=== PATIENT | male | born 1950 | race Caucasian/White ===

== ENCOUNTER 2018-03-02 10:18 | Day surgery (SDC) | payer MEDICARE, BC ==
[2018-02-28 14:01] VITALS: BMI 24.7
[~2018-03-02 10:18] MED LIST: LACTATED RINGERS 1,000 ML IV SCH
[2018-03-02 10:59] VITALS: TEMP 98
[2018-03-02] MEDS ORDERED: LIDOCAINE 1% 20 ML VIAL (10MG/ML) FOR IV START INTRADERMA ONE (11:00)
[2018-03-02] MEDS ORDERED: LACTATED RINGERS 1,000 ML IV ONE (11:00)
[2018-03-02] MEDS ORDERED: LIDOCAINE 1% INJ 10MG/ML (20 ML MDV) ONE (11:45)
[2018-03-02] MEDS ORDERED: PROPOFOL 10 MG/ML 20 ML VIAL IV ONE (11:45)
[2018-03-02 12:39] VITALS: BP 115/67; PULSE 57; RESP 16
--- NOTE | 2018-03-02 14:44 | P.PCN ---
Date of Procedure: 03/02/18 Procedure(s) Performed: Procedures: 1. Esophagogastroduodenoscopy and biopsy. 2. Total colonoscopy. Preoperative diagnosis: History of Major's esophagus and history of polyps. Postoperative diagnosis: 1. Long segment of Major's esophagus with distal esophageal ulcer in the Major's segment. 2. Esophagitis proximal to the talisha- GE junction. 3. Hiatal hernia. 4. Normal colonoscopy. Preparation: HalfLytely prep. Sedation: Was provided by anesthesia Brief clinical history: The patient is a 67-year-old male who is scheduled for this evaluation because of history of Major's esophagus and history of polyps. His last EGD was around 2 years ago and his last colonoscopy was around 5 years ago. The patient has stopped taking his PPI within the last 3 or 4 months and apparently he has been having issues with heartburn and atypical chest pains. He has no change in bowels or bleeding. Procedure: With the patient on his left lateral decubitus position and after informed consent and adequate sedation, I passed the Olympus-GIF 160 video upper endoscope through the cricopharyngeus down the esophagus. The talisha-GE junction was noted at around 25 cm from the incisors and the tubular esophagus continues for another 7-9 cm. There is a sliding hiatal hernia starting around 35 cm measuring around 3-4 cm or so. There were no strictures. At the junction of the Major's segment with the hiatal hernia there was an esophageal ulceration measuring around 1.5-2 cm in greatest dimension. I obtained multiple biopsies. The esophagus proximal to the talisha-GE junction showed several erosions and superficial ulcerations consistent with LA grade C esophagitis. The endoscope was then passed into the stomach which was insufflated with air and inspected in detail including the retroflex view in the cardia and finally the endoscope was passed through the pylorus into the duodenum. The stomach and duodenum did not show any obvious abnormalities. The endoscope was then withdrawn back into the esophagus and biopsies were obtained from the esophagus proximal to the talisha-GE junction. Perianal area did not show any fissures or fistulas. There were no masses felt on digital rectal examination. The Olympus CFQ 160L video colonoscope was then inserted in the rectum and the usual fashion and advanced to the cecum. The mucosa appeared healthy. No polyps or tumors were seen or any obvious diverticular disease or other pathology. I retroflexed endoscope in the rectum before the endoscope was withdrawn. Disposition: The patient tolerated the procedure well. Plan: The patient was reassured. Will await biopsy results. I had him restart his omeprazole any twice a day dosing and I'll see him in follow-up in the office in 4-6 weeks. I anticipate repeating his upper endoscopy in the next 2- 3 months to assess the healing of the ulcer in the Major's segment and to plan further surveillance of his Major's in the future. I would keep you updated on his progress.
== END 2018-03-02 13:05 | disposition home or self-care (01) ==
LOC: ORWHC2ENDO 10:18
DX: Z12.11 Encounter for screening for malignant neoplasm of colon (principal); K21.0 Gastro-esophageal reflux disease with esophagitis; K22.70 Barrett's esophagus without dysplasia; K44.9 Diaphragmatic hernia without obstruction or gangrene; Z86.010 Personal history of colon polyps; Z79.899 Other long term (current) drug therapy
CPT/HCPCS: 88305; 88312; 43239; J2001; J2704; G0105

== ENCOUNTER 2018-06-12 09:49 | Day surgery (SDC) | payer MEDICARE, BC ==
[2018-06-09 10:03] VITALS: BMI 25.4
[~2018-06-12 09:49] MED LIST changes: +LIDOCAINE 1% 20 ML VIAL (10MG/ML) FOR IV START INTRADERMA PRN
[2018-06-12 10:11] VITALS: RESP 16; TEMP 98.1
[2018-06-12] MEDS ORDERED: PROPOFOL 10 MG/ML 20 ML VIAL IV ONE (10:41)
[2018-06-12] MEDS ORDERED: LIDOCAINE 1% INJ 10MG/ML (20 ML MDV) ONE (10:41)
--- NOTE | 2018-06-12 11:11 | P.PCN ---
Date of Procedure: 06/12/18 Procedure(s) Performed: Procedure: Esophagogastroduodenoscopy and biopsy. Preoperative diagnosis: History of Major's esophagus. Postoperative diagnosis: Long segment of Major's, multiple biopsies obtained at 2 different levels. Preparation and sedation: Were provided by anesthesia. Brief clinical history: The patient is a 67-year-old male with history of Major's esophagus that has been monitored closely since around 2003. His last evaluation was in February 2018. At that time, he was noticed to have esophagitis proximal to the talisha-GE junction and there was an ulcer in the Major's segment close to the junction with the stomach. He continues to be on PPI. No other alarm symptoms. This evaluation is scheduled to assess the healing of the esophagitis and the esophageal ulcer and to obtain biopsies for dysplasia screening for esophageal cancer.. Procedure: With the patient on his left lateral decubitus position and after informed consent and adequate sedation, I passed the Olympus-GIF 160 video upper endoscope through the cricopharyngeus down the esophagus. The talisha-GE junction was noted at around 25 cm from the incisors and the tubular esophagus continues for another 9-10 cm. There is a sliding hiatal hernia starting around 35 cm measuring around 2 cm or so. There were no strictures. The previously described esophagitis and ulceration appears to have totally healed. The esophagus proximal to the talisha-GE junction appeared normal. The endoscope was then passed into the stomach which was insufflated with air and inspected in detail including the retroflex view in the cardia and finally the endoscope was passed through the pylorus into the duodenum. The stomach and duodenum did not show any obvious abnormalities. The endoscope was then withdrawn back into the esophagus and biopsies were obtained at 25-26 and 31 cm from the incisors from 4 different quadrants, then the endoscope was withdrawn. Plan: The patient tolerated the procedure well. Will await biopsy results and I anticipate repeating his exam in 2-3 years. He will follow up with you as planned.
[2018-06-12 11:28] VITALS: BP 124/79; PULSE 56
== END 2018-06-12 11:50 | disposition home or self-care (01) ==
LOC: ORWHC2ENDO 09:49
DX: K22.70 Barrett's esophagus without dysplasia (principal); K44.9 Diaphragmatic hernia without obstruction or gangrene; K21.9 Gastro-esophageal reflux disease without esophagitis; Z79.51 Long term (current) use of inhaled steroids; Z79.899 Other long term (current) drug therapy
CPT/HCPCS: 88305; 43239; J2001; J2704

== ENCOUNTER 2019-07-20 09:57 | Day surgery (SDC) | payer MEDICARE, BC ==
[2019-07-18 11:40] VITALS: BMI 25.7
[2019-07-20 10:16] VITALS: RESP 16; TEMP 97.9
[2019-07-20] MEDS ORDERED: LIDOCAINE 1% INJ 10MG/ML (20 ML MDV) ONE (11:12)
[2019-07-20] MEDS ORDERED: PROPOFOL 10 MG/ML 20 ML VIAL IV ONE (11:12)
--- NOTE | 2019-07-20 11:31 | P.PCN ---
Date of Procedure: 07/20/19 Procedure(s) Performed: BRIEF HISTORY: Patient is a 59-year-old, pleasant, white male, scheduled for an upper endoscopy as a part of evaluation of long-standing history of GERD and Major's esophagus. He is presently on Prilosec 20 mg twice daily and doing well. PROCEDURE PERFORMED: Esophagogastroduodenoscopy with biopsy. PREOPERATIVE DIAGNOSIS: GERD/Major's esophagus. IV sedation per anesthesia. PROCEDURE: After informed consent was obtained, the patient was brought into the endoscopy unit. IV sedation was administered by Anesthesia under continuous monitoring. Initially the Olympus GIF-140 video endoscope was inserted into the mouth. Esophagus intubated without any difficulty. It was gradually advanced into the stomach and duodenum and carefully examined. The bulb and the second part of the duodenum appeared normal. The scope at this time was withdrawn to the stomach, adequately insufflated with air, and upon careful examination, mucosa of the antrum, body, cardia and the fundus appeared normal. The scope was then withdrawn into the esophagus. The GE junction was located at 34 cm from the incisors. There was a 56 cm GE junction polyp that was also biopsied. There was long segment of Major's esophagus extended from 24-34 mm in the incisors with no ulcerations or nodularity seen. Multiple biopsies were done at every 2 cm into well to rule out dysplasia. The rest of the esophagus appeared normal. There were no erosions or ulcerations seen and the patient tolerated the procedure well. IMPRESSION: 1. Long segment Major's esophagus extending from 24-34 cm from the incisors status post multiple biopsies to rule out dysplasia .2. Moderate size hiatal hernia. 3. Small GE junction polyp status post biopsy RECOMMENDATIONS: The findings of this examination were discussed with the patient as well as his family. He was advised to follow with the biopsy results . As his twice daily and follow antireflux measures. If the biopsy does not show any evidence of dysplasia, he can have a repeat upper endoscopy in 2 years.
[2019-07-20 11:37] VITALS: PULSE 61
[2019-07-20 11:55] VITALS: BP 134/85
== END 2019-07-20 12:18 | disposition home or self-care (01) ==
LOC: ORWHC2ENDO 09:57
PROVIDERS: ATTEND Internal Medicine Gastroenterology
DX: K22.70 Barrett's esophagus without dysplasia (principal); K44.9 Diaphragmatic hernia without obstruction or gangrene; K21.9 Gastro-esophageal reflux disease without esophagitis; Z79.899 Other long term (current) drug therapy
CPT/HCPCS: 88305; 43239; J2001; J2704

== ENCOUNTER → 2019-09-15 | Outpatient (CLI) | payer MEDICARE, BC ==
--- NOTE | 2019-09-19 10:12 | PE ---
Nuclear medicine PET/CT HISTORY: Esophageal carcinoma, initial Patient received 11.8 mCi F-18 FDG intravenously in delayed scanning was performed from skull base to the mid thighs. Localization and attenuation correction CT scan was performed. No comparisons Neck and chest: Uptake along the palatine tonsil is felt likely to be inflammatory, there are calcifi cations suggesting chronic change. There is no axillary, mediastinal, supraclavicular, cervical, or h ilar adenopathy. There is a sizable hiatal hernia with partial intrathoracic stomach. No suspicious h ypermetabolic uptake. There is an azygos lobe. No evident lung mass. No pleural or pericardial effusi on. There are coronary artery calcifications present. ABDOMEN: The liver shows no mass. No retroperitoneal adenopathy. No suspicious uptake noted. Prostate shows associated calcifications. Osseous structures show no suspicious abnormality. IMPRESSION: No suspicious hypermetabolic uptake.
== END | disposition home or self-care (01) ==
LOC: RADPETMAIN 12:27
PROVIDERS: ATTEND Internal Medicine Gastroenterology
DX: C15.8 Malignant neoplasm of overlapping sites of esophagus (principal)
CPT/HCPCS: 78815; A9552

== ENCOUNTER 2021-04-24 09:37 | Observation (INO) | payer MEDICARE, BC ==
[2021-04-24] MEDS ORDERED: ASPIRIN 81 MG PO STA (10:06)
[2021-04-24] MEDS ORDERED: NITROGLYCERIN SL TABS 0.4 MG TAB SUBLINGUAL STA (10:06)
--- NOTE | 2021-04-24 10:18 | ED ---
Chest Pain HPI - General Chief Complaint: Chest Pain Stated Complaint: Chest Pain Time Seen by Provider: 04/24/21 09:51 Source: patient, RN notes reviewed Mode of arrival: wheelchair Limitations: no limitations - History of Present Illness Initial Comments: This is a 70-year-old male with no prior history of heart disease who states she's been having intermittent episodes of chest pain with shortness of breath or past 1-2 weeks at worse over last 2 days. Pain was dull anterior chest left- sided to 3/10 severity at its worst currently about once to 2/10 he states he also gets some sharp pain with deep breathing along with this she's had no fevers chills nausea vomiting sweats cough or other symptoms at this time. MD Complaint: chest pain - Related Data Home Medications Medication Instructions Recorded Confirmed Omeprazole [PriLOSEC] 20 mg PO BID 12/24/15 04/24/21 Allergies Allergy/AdvReac Type Severity Reaction Status Date / Time No Known Allergies Allergy Verified 04/24/21 10:37 Review of Systems ROS Statement: Those systems with pertinent positive or pertinent negative responses have been documented in the HPI. ROS Other: All systems not noted in ROS Statement are negative. EKG Findings - EKG Results: EKG: interpreted by ERMD, sinus rhythm (Sinus rhythm rate 60. Interval 156 QRS 94 QT since QTC 390/390 minimal voltage criteria for LVH no acute ST-T wave changes seen at this time) Past Medical History Past Medical History: GERD/Reflux Additional Past Medical History / Comment(s): Major's esophagus, bronchitis, SEASONAL ALLERGIES History of Any Multi-Drug Resistant Organisms: None Reported Additional Past Surgical History / Comment(s): jaw surgery,EGD Past Anesthesia/Blood Transfusion Reactions: No Reported Reaction Past Psychological History: No Psychological Hx Reported Smoking Status: Never smoker Past Alcohol Use History: None Reported Past Drug Use History: None Reported - Past Family History Mother Family Medical History: Deep Vein Thrombosis (DVT) General Exam - General Exam Comments Initial Comments: This is a well-developed well-nourished awake alert oriented 3 male Limitations: no limitations General appearance: alert, in no apparent distress Head exam: Present: atraumatic, normocephalic, normal inspection Eye exam: Present: normal appearance, PERRL, EOMI. Absent: scleral icterus, conjunctival injection, periorbital swelling ENT exam: Present: normal exam, mucous membranes moist Neck exam: Present: normal inspection, full ROM, other (No stridor JVD or bruits). Absent: tenderness, meningismus, lymphadenopathy Respiratory exam: Present: normal lung sounds bilaterally. Absent: respiratory distress, wheezes, rales, rhonchi, stridor Cardiovascular Exam: Present: regular rate, normal rhythm, normal heart sounds. Absent: systolic murmur, diastolic murmur, rubs, gallop, clicks GI/Abdominal exam: Present: soft, normal bowel sounds. Absent: distended, tenderness, guarding, rebound, rigid Extremities exam: Present: normal inspection, full ROM, normal capillary refill. Absent: tenderness, pedal edema, joint swelling, calf tenderness Back exam: Present: normal inspection Neurological exam: Present: alert, oriented X3, CN II-XII intact Psychiatric exam: Present: normal affect, normal mood Skin exam: Present: warm, dry, intact, normal color. Absent: rash Course Vital Signs 04/24/21 04/24/21 04/24/21 09:44 10:20 10:30 Temperature 98.0 F Pulse Rate 69 60 67 Respiratory 18 18 18 Rate Blood Pressure 157/93 149/84 132/86 O2 Sat by Pulse 99 96 94 L Oximetry 04/24/21 04/24/21 11:19 11:41 Temperature Pulse Rate 60 63 Respiratory 18 16 Rate Blood Pressure 127/86 133/82 O2 Sat by Pulse 97 95 Oximetry Chest Pain MDM - MDM Imaging reviewed no evidence of acute findings no PE. I did have a long discussion with patient regarding the findings the presentation is somewhat atypical of her typical coronary artery disease. Patient will be admitted however for further evaluation I did discuss case with Dr. Rojas. Cardiology will be consulted. Disposition Clinical Impression: Atypical chest pain, Unstable angina pectoris Disposition: ADMITTED IP TO THIS [facility] Condition: Fair Referrals: Neda Gomez MD [Primary Care Provider] - 1-2 days
[2021-04-24 10:20] LABS: Basophils % (A) 0 %; Eosinophils # (A) 0.2 k/uL (0-0.7); Eosinophils % (A) 3 %; HCT 43.4 % (39.0-53.0); HGB 14.9 gm/dL (13.0-17.5); Lymphocytes # (A) 2.3 k/uL (1.0-4.8); Lymphocytes % (A) 27 %; MCH 31.8 pg (25.0-35.0); MCHC 34.4 g/dL (31.0-37.0); MCV 92.4 fL (80.0-100.0); Mean Platelet Volume 6.7; Monocytes # (A) 0.6 k/uL (0-1.0); Monocytes % (A) 7 %; Neutrophils # (A) 5.2 k/uL (1.3-7.7); Neutrophils % (A) 61 %; Platelet Count 221 k/uL (150-450); RBC 4.69 m/uL (4.30-5.90); RDW 12.7 % (11.5-15.5); WBC 8.4 k/uL (3.8-10.6)
[2021-04-24 10:31] LABS: ALT 19 U/L (4-49); AST 31 U/L (17-59); African American GFR (CKD) >90 (>60 ml/min/1.73 sqM); Albumin 4.1 g/dL (3.5-5.0); Alkaline Phosphatase 80 U/L (38-126); Anion Gap 7 mmol/L; Blood Urea Nitrogen 17 mg/dL (9-20); Calcium 9.2 mg/dL (8.4-10.2); Carbon Dioxide 25 mmol/L (22-30); Chloride 107 mmol/L (98-107); Creatine Kinase 224 U/L (55-170); Glucose 120 mg/dL (74-99); Lipase 248 U/L (23-300); Magnesium 1.9 mg/dL (1.6-2.3); Non-African American GFR(CKD) 87 (>60 ml/min/1.73 sqM); Potassium 4.2 mmol/L (3.5-5.1); Sodium 139 mmol/L (137-145); Total Bilirubin 0.5 mg/dL (0.2-1.3); Total Protein 7.1 g/dL (6.3-8.2)
--- NOTE | 2021-04-24 10:36 | XR ---
EXAMINATION TYPE: XR chest 2V DATE OF EXAM: 04/24/2021 COMPARISON: NONE HISTORY: Shortness of breath TECHNIQUE: Frontal and lateral views of the chest are obtained. FINDINGS: Scattered senescent parenchymal changes noted. Hyperinflation compatible with COPD. Mild increased density right medial lung base may reflect developing infiltrate. Correlate clinically . Heart size is stable. Mediastinal structures are stable and grossly unremarkable. No evidence for hilar prominence. Degenerative changes dorsal spine. IMPRESSION: 1. Mild increased density right medial lung base may reflect developing infiltrate. Correlate clinica lly.
[2021-04-24 10:40] LABS: INR 0.9 (<1.2); Partial Thromboplastin Time 23.1 sec (22.0-30.0); Prothrombin Time 9.6 sec (9.0-12.0)
[2021-04-24 10:47] LABS: D-Dimer 0.69 mg/L FEU (<0.60)
--- NOTE | 2021-04-24 12:15 | CT ---
EXAMINATION TYPE: CT angio chest DATE OF EXAM: 04/24/2021 COMPARISON: None HISTORY: SOB suspected PE CT DLP: 390.3 mGycm CONTRAST: CT chest with contrast and 3D reconstruction with MIP imaging is performed with IV Contrast, patient injected with 100ml mL of Isovue 370. Contrast-enhanced CT of the chest was performed through the course of the pulmonary arteries with bertram g and mediastinal window settings submitted. 3D reconstruction with MIP imaging was also performed. PULMONARY ARTERIES: The pulmonary arteries and their major tributaries are patent. I do not see john dence for sizable filling defect to suggest pulmonary embolic process. LUNGS: The lungs are clear and free of infiltrate. No evidence for atelectasis. No pulmonary nodule or mass is detected. No pleural effusion. MEDIASTINUM: Moderate fixed hiatal hernia noted. Thoracic aorta is of normal caliber,however, evalua tion is limited given timing of the contrast bolus. If there is concern for thoracic aortic patholog y consider LOVELY. Correlate clinically . The heart is not enlarged. No evidence for mediastinal mass. No mediastinal lymph nodes greater than 1cm. HILAR STRUCTURES: No evidence for mass. No hilar lymph nodes greater than 1 cm. UPPER ABDOMEN: No significant abnormality is seen. IMPRESSION: 1. No evidence for Pulmonary embolism at this time.
[2021-04-24] MEDS ORDERED: NITROGLYCERIN SL TABS 0.4 MG TAB SUBLINGUAL PRN (13:47)
[2021-04-24] MEDS ORDERED: HEPARIN SODIUM 1,000 UN/ML (10ML VL) IV ONE (13:47)
[2021-04-24] MEDS ORDERED: SODIUM CHLORIDE 0.9% 1,000 ML IV SCH (14:00)
[2021-04-24] MEDS ORDERED: HEPARIN SOD,PORK IN 0.45% NACL 25,000 UNIT in 0.45% NACL 1 250ML.BAG IV SCH (14:00)
[2021-04-25] MEDS ORDERED: HEPARIN SODIUM 1,000 UN/ML (10ML VL) IV PRN (00:15)
[2021-04-25] MEDS ORDERED: PANTOPRAZOLE 40 MG TABLET PO SCH (07:30)
[2021-04-25 08:25] VITALS: BP 132/84; PULSE 59; RESP 17; TEMP 98
[2021-04-25] MEDS ORDERED: ASPIRIN 325 MG TAB PO SCH (09:00)
--- NOTE | 2021-04-25 10:00 | ECHOF ---
Referral Reason:Chest pain MEASUREMENTS -------- HEIGHT: 165.1 cm WEIGHT: 80.7 kg BP: IVSd: 1.0 cm (0.6 - 1.1) LVIDd: 3.8 cm (3.9 - 5.3) LVPWd: 1.1 cm (0.6 - 1.1) EDV(Teich): 63 ml IVSs: 1.2 cm LVIDs: 3.0 cm LVPWs: 1.0 cm %IVS Thck: 29 % ESV(Teich): 34 ml EF(Teich): 46 % %FS: 23 % SV(Teich): 29 ml LALs A4C: 4.1 cm LAAs A4C: 13.1 cm LAESV A-L A4C: 35 ml LAESV MOD A4C: 33 ml LALs A2C: 5.3 cm LAAs A2C: 19.4 cm LAESV A-L A2C: 61 ml LAESV MOD A2C: 58 ml LAESV(A-L): 52 ml LAESV Index (A-L): 27.57 ml/m Ao Diam: 2.8 cm (2.0 - 3.7) AV Cusp: 1.7 cm (1.5 - 2.6) EPSS: 0.3 cm MV E Kian: 0.87 m/s MV DecT: 198 ms MV Dec [place]: 4.4 m/s MV A Kian: 0.84 m/s MV E/A Ratio: 1.04 MV PHT: 58 ms TR Vmax: 2.14 m/s TR maxP.28 mmHg RAP: 5.00 mmHg RVSP: 23.28 mmHg MV EF SLOPE: 107.71 mm/s (70 - 150) MV EXCURSION: 21.52 mm (> 18.000) FINDINGS -------- Sinus rhythm. This was a technically good study. LV size, wall thickness and systolic function are normal, with an EF greater than 55%. The left yahaira tricular size is normal. The right ventricle is normal in size. Normal LA size by volume 22+/-6 ml/m2. The right atrial size is normal. The aortic valve is trileaflet, and appears structurally normal. No aortic stenosis or regurgitation. Mild mitral regurgitation is present. Mild tricuspid regurgitation present. Right ventricular systolic pressure is normal at < 35 mmHg. There is no pulmonic regurgitation present. The aortic root size is normal. There is no pericardial effusion. CONCLUSIONS -------- 1. LV size, wall thickness and systolic function are normal, with an EF greater than 55%. 2. The left ventricular size is normal. 3. The right ventricle is normal in size. 4. Normal LA size by volume 22+/-6 ml/m2. 5. The right atrial size is normal. 6. The aortic valve is trileaflet, and appears structurally normal. No aortic stenosis or regurgitati on. 7. Mild mitral regurgitation is present. 8. Mild tricuspid regurgitation present. 9. The aortic root size is normal. 10. There is no pericardial effusion. SAW FILER: Anya Cole RDCS
[2021-04-25 10:11] LABS: Chol/HDL Ratio 3.92
--- NOTE | 2021-04-25 12:48 | P.HPIM ---
History of Present Illness H&P Date: 04/25/21 Chief Complaint: Chest pain Doug Belle, is a 70-year-old male who presented to [facility] emergency room with a chief complaint of chest pain, patient describes a dull pain in the left side of his chest that started about 1-1/2 months ago on and off but has been worse in the last 2 days. He was evaluated in the emergency room vital examination on presentation revealed a temperature of 98 pulse 69 respiration 18 blood pressure 157/93 pulse ox 99% on room air. Laboratory data in the emergency room revealed a white blood count of 8.4 hemoglobin 14.9 p latelet count 221 d-dimer was slightly elevated at 0.69 sodium 139 potassium 4.2 chloride 107 CO2 25 BUN 17 creatinine 0.87 glucose level was 120 cholesterol level 200 triglyceride level 100 troponin level was less than 0.012 COVID-19 PCR testing was negative. Chest x-ray done in the emergency room revealed mild increased density in the right medial lung base that may reflect developing infiltrate. CT angiogram of the chest was done in the emergency room and revealed no evidence for pulmonary embolism, the lungs were clear of any infiltrate on computed tomography scan. Patient was admitted to telemetry floor cardiology consultation was requested. Past Medical History Past Medical History: GERD/Reflux Additional Past Medical History / Comment(s): Major's esophagus, bronchitis, SEASONAL ALLERGIES History of Any Multi-Drug Resistant Organisms: None Reported Additional Past Surgical History / Comment(s): jaw surgery,EGD Past Anesthesia/Blood Transfusion Reactions: No Reported Reaction Past Psychological History: No Psychological Hx Reported Smoking Status: Never smoker Past Alcohol Use History: None Reported Past Drug Use History: None Reported - Past Family History Mother Family Medical History: Deep Vein Thrombosis (DVT), Myocardial Infarction ([place]) Father Additional Family Medical History / Comment(s): TIAs Medications and Allergies Home Medications Medication Instructions Recorded Confirmed Type Omeprazole [PriLOSEC] 20 mg PO BID 12/24/15 04/24/21 History Aspirin 81 mg PO DAILY chew 04/25/21 Rx Metoprolol Tartrate [Lopressor] 12.5 mg PO BID tab 04/25/21 Rx Nitroglycerin Sl Tabs [Nitrostat] 0.4 mg SUBLINGUAL Q5M PRN tab 04/25/21 Rx Allergies Allergy/AdvReac Type Severity Reaction Status Date / Time No Known Allergies Allergy Verified 04/24/21 10:37 Physical Exam Vitals: Vital Signs Temp Pulse Pulse Resp BP BP Pulse Ox 04/25/21 07:00 98.0 F 59 L 17 132/84 95 04/25/21 02:00 97.8 F 61 20 155/94 98 04/24/21 19:51 97.7 F 63 18 145/86 97 04/24/21 15:56 98.2 F 81 16 132/67 97 04/24/21 14:00 57 L 19 149/82 97 04/24/21 13:00 52 L 19 139/86 97 04/24/21 12:00 61 18 134/82 97 Intake and Output 04/24/21 04/25/21 04/25/21 22:59 06:59 14:59 Intake Total 118 99.792 Balance 118 99.792 Intake: Intake, IV Titration 99.792 Amount Heparin Sod,Pork in 0.45% 99.792 NaCl 25,000 unit In 0.45 % NaCl 1 250ml.bag @ 12 UNITS/KG/HR 9.58 mls/hr IV .Q24H [facility] Rx#: [id number] Oral 118 Other: Voiding Method Toilet # Voids 2 3 Weight 79.832 kg In general patient is alert and oriented ?-3 in no distress HEENT head normocephalic and atraumatic Neck is supple no JVD no goiter no lymphadenopathy no carotid bruit Chest examination is clear to auscultation no crackles no wheezing Cardiac exam reveals regular heart sounds S1 and S2 no gallops no murmurs Abdomen is soft nontender no organomegaly with normal bowel sounds Extremity exam reveals no edema no cyanosis or clubbing Neurological examination reveals no gross focal deficits Results CBC & Chem 7: 04/24/21 10:08 04/24/21 10:08 Labs: Abnormal Lab Results - Last 24 Hours (Table) 04/24/21 04/25/21 Range/Units 19:36 06:05 APTT 38.1 H 49.6 H (22.0-30.0) sec Thrombosis Risk Factor Assmnt - Choose All That Apply Each Factor Represents 1 point: Obesity (BMI >25) Each Risk Factor Represents 2 Points: Age 61-74 years Thrombosis Risk Factor Assessment Total Risk Factor Score: 3 Thrombosis Risk Factor Assessment Level: Moderate Risk Assessment and Plan Plan: Episodes of chest pain History of esophageal cancer with previous history of Major esophagus, patient had surgery and is followed at [facility] Elevated d-dimer, pulmonary embolism ruled out Previous history of anemia At this time patient is admitted to telemetry floor Serial EKGs and cardiac enzymes are ordered Patient was started on IV heparin Home medications reviewed and reordered Cardiology consultation requested Will follow closely
--- NOTE | 2021-04-25 12:51 | P.DS ---
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 He was evaluated in the emergency room vital examination on presentation revealed a temperature of 98 pulse 69 respiration 18 blood pressure 157/93 pulse ox 99% on room air. Laboratory data in the emergency room revealed a white blood count of 8.4 hemoglobin 14.9 platelet count 221 d-dimer was slightly elevated at 0.69 sodium 139 potassium 4.2 chloride 107 CO2 25 BUN 17 creatinine 0.87 glucose level was 120 cholesterol level 200 triglyceride level 100 troponin level was less than 0.012 COVID-19 PCR testing was negative. Chest x-ray done in the emergency room revealed mild increased density in the right medial lung base that may reflect developing infiltrate. CT angiogram of the chest was done in the emergency room and revealed no evidence for pulmonary embolism, the lungs were clear of any infiltrate on computed tomography scan. Patient was admitted to telemetry floor cardiology consultation was requested. On 04/25/2021 Patient was seen and examined on the medical floor, he is alert and oriented x 3 in no distress, he denies any complaints there is no fever or chills no headache or dizziness no chest pain no shortness of breath no palpitation no cough no nausea or vomiting no abdominal pain no diarrhea no blood in the stools no burning with urination no frequency or urgency and no hematuria, there is no weakness or numbness in any of the extremities no change in vision speech or gait.. Patient is stable at this time serial troponin are negative, he was evaluated by cardiology and was cleared for discharge. He will be followed by cardiology in 1-2 weeks for outpatient stress test. Recommendation to add a baby aspirin and metoprolol to patient's regimen, prescriptions were given patient was discharged home on 04/25/2021 he will be followed by his primary care physician Dr. Gomez, he will also be followed by cardiology in 1-2. Patient Condition at Discharge: Fair Plan - Discharge Summary New Discharge Prescriptions: New Nitroglycerin Sl Tabs [Nitrostat] 0.4 mg SUBLINGUAL Q5M PRN tab PRN Reason: Chest Pain Aspirin 81 mg PO DAILY chew Metoprolol Tartrate [Lopressor] 12.5 mg PO BID tab Continue Omeprazole [PriLOSEC] 20 mg PO BID Discharge Medication List Omeprazole [PriLOSEC] 20 mg PO BID 12/24/15 [History] Aspirin 81 mg PO DAILY chew 04/25/21 [Rx] Metoprolol Tartrate [Lopressor] 12.5 mg PO BID tab 04/25/21 [Rx] Nitroglycerin Sl Tabs [Nitrostat] 0.4 mg SUBLINGUAL Q5M PRN tab 04/25/21 [Rx] Follow up Appointment(s)/Referral(s): Sun Clements MD [STAFF PHYSICIAN] - 1 Week (please call Tuesday am to set up an appointment for out pt stress test ) Neda Gomez MD [Primary Care Provider] - 1-2 days Patient Instructions/Handouts: Chest Pain (GEN) Care Plan Goals (MU): no work for next week, no strenuous activity for next week, no push ups, may walk 2 times a day for 30 minutes return to hospital if symptoms worsen
--- NOTE | 2021-04-25 13:35 | CONS ---
CONSULTATION HISTORY OF PRESENT ILLNESS: Doug Belle is a 70-year-old gentleman who is a fairly active person. He carries a diagnosis of Major's esophagus and has had some surgical procedures and ablation for this at [facility]. 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 He did a little bit of excessive pushups last few days and has experienced some left anterior chest discomfort and he is here with this problem. He is comfortable at the time of my evaluation, has no chest discomfort. The pain in the anterior chest has also improved. There is actually some tenderness in the anterior costochondral area of the 3rd or 4th ribs. It seems to get worse when he takes a deep breath. He thinks he may have pulled a muscle or hurt himself when he was doing excessive pushups. PAST MEDICAL HISTORY: Remarkable for gastroesophageal reflux disease and Major's esophagus for which he has had some ablation performed. He has had some surgery on his jaw, details unclear. He does not have hypertension, diabetes, or any other major medical problems. MEDICATIONS: Include omeprazole 20 mg b.i.d. ALLERGIES: None. PHYSICAL EXAMINATION: On examination, blood pressure is 130/70, pulse rate is 70 per minute. HEENT unremarkable. Fundus was not examined by me. Neck is supple. No JVD. I do not hear a carotid bruit. There is no thyromegaly. Heart exam reveals S1, S2 heard normally without a rub murmur or gallop. LUNGS are clear. Abdomen is soft, nontender. Lower extremities reveal normal pulses. No edema. Central nervous system is normal. EKG revealed sinus mechanism, no acute changes. LAB DATA: Revealed unremarkable troponins. LDL cholesterol is slightly is elevated at 129. Three sets of troponins are unremarkable. D-dimer is slightly elevated and patient had a CT angio which was negative for pulmonary embolism or for any aortic pathology. Echo revealed normal LV systolic function. IMPRESSION: 1. Atypical chest pain. 2. History of gastroesophageal reflux disease. Major's esophagus. RECOMMENDATIONS: I am recommending that the patient can be discharged today and further workup in terms of a stress test can be performed as an outpatient. No further workup is necessary at this time. Echo revealed preserved systolic function. I will initiate the patient on aspirin 81 mg daily and metoprolol 12.5 mg daily. I will see him in the office following a stress test in the next 2 weeks. I discussed my thoughts in detail with the patient. Thank you very much for the consult. ARIES / CONSUELO: [id number] /
[2021-04-25] MEDS ORDERED: METOPROLOL TARTRATE 12.5 MG TAB PO SCH (21:00)
[2021-04-26] MEDS ORDERED: ASPIRIN 81 MG PO SCH (09:00)
== END 2021-04-25 13:10 | disposition home or self-care (01) ==
LOC: EC 09:37 → 6NMEDSUR 13:44
PROVIDERS: ADMIT Internal Medicine; ATTEND Internal Medicine
DX: R07.89 Other chest pain (principal); R79.89 Other specified abnormal findings of blood chemistry; K21.9 Gastro-esophageal reflux disease without esophagitis; K22.70 Barrett's esophagus without dysplasia; J30.2 Other seasonal allergic rhinitis; E66.9 Obesity, unspecified; Z68.26 Body mass index [BMI] 26.0-26.9, adult; Z20.822 Contact with and (suspected) exposure to COVID-19; Z87.09 Personal history of other diseases of the respiratory system; Z79.899 Other long term (current) drug therapy; Z85.01 Personal history of malignant neoplasm of esophagus; Z86.2 Personal history of diseases of the blood and blood-forming organs and certain disorders involving the immune mechanism; Z82.0 Family history of epilepsy and other diseases of the nervous system; Z82.49 Family history of ischemic heart disease and other diseases of the circulatory system
CPT/HCPCS: 96366 ×3; 93005 ×2; 96365; 99285; 36415; 93306; 85379; 83880; 80061; 80053; 82550; 83690; 83735; 84484; 85025; 85610; 85730 ×2; 87635; 71046; 71275; G0378 ×2; J1644 ×3; Q9967

== ENCOUNTER 2024-01-06 11:53 | Day surgery (SDC) | payer MEDICARE ==
[2024-01-06] MEDS: LACTATED RINGERS 1,000 ML IV SCH (12:51)
[2024-01-06 13:07] VITALS: TEMP 97.3
[2024-01-06] MEDS ORDERED: LIDOCAINE 1% INJ 10MG/ML (20 ML MDV) ONE (14:00)
[2024-01-06] MEDS ORDERED: PROPOFOL 10 MG/ML 20 ML VIAL IV ONE (14:00)
[2024-01-06] MEDS: LACTATED RINGERS 1,000 ML IV ONE (14:19)
--- NOTE | 2024-01-06 14:19 | P.PCN ---
Date of Procedure: 01/06/24 Procedure(s) Performed: BRIEF HISTORY: Patient is a 73-year-old, pleasant, white male scheduled for an upper endoscopy as a part of surveillance of prior history of Major's esophagus and high-grade dysplasia diagnosed in June 2019 following which he underwent EGD with endoscopic mucosal resection and radial frequency ablation of the Major's esophagus. Last EGD in November 2072 at [facility] revealed small island of Major's mucosa proximal to the GE junction. He scheduled for a repeat surveillance upper endoscopy in 1 year.. Remains on Prilosec 20 mg daily PROCEDURE PERFORMED: Esophagogastroduodenoscopy biopsy. PREOPERATIVE DIAGNOSIS: History of Major's esophagus with high-grade dysplasia diagnosed in January 2019, status post EGD with EMR and radiofrequency ablation at [facility] in 2018.. IV sedation per anesthesia. PROCEDURE: After informed consent was obtained, the patient was brought into the endoscopy unit. IV sedation was administered by Anesthesia under continuous monitoring. Initially the Olympus GIF-140 video endoscope was inserted into the mouth. Esophagus intubated without any difficulty. It was gradually advanced into the stomach and duodenum and carefully examined. The bulb and the second part of the duodenum appeared normal. The scope at this time was withdrawn to the stomach, adequately insufflated with air, and upon careful examination, mucosa of the antrum, body, cardia and the fundus appeared normal. Small gastric polyps identified which were biopsied. The scope was then withdrawn into the esophagus. The size hiatal hernia noted. The GE junction was located at 32 cm from the incisors. A small island of Major's appearing mucosa just proximal to the GE junction measuring 3 mm in size that was biopsied. Random biopsies were done from the distal esophagus. The rest of the esophagus appeared normal. There were no erosions or ulcerations seen and the patient tolerated the procedure well. IMPRESSION: 1. 3 mm island of Major's appearing mucosa just proximal to the GE junction at 31 cm from the incisors status post biopsy. 2. Moderate size hiatal hernia 3. Small gastric polyps. RECOMMENDATIONS: The findings of this examination were discussed with the patient as his family. He was advised to follow with the biopsy result. Continue Prilosec 20 mg daily and follow antrum reflux measures. Recommend repeat upper endoscopy in 1 year..
[2024-01-06 14:37] VITALS: BP 132/83; PULSE 63; RESP 16
== END 2024-01-06 14:51 | disposition home or self-care (01) ==
LOC: ORWHC2ENDO 11:53
PROVIDERS: ATTEND Internal Medicine Gastroenterology
DX: K22.711 Barrett's esophagus with high grade dysplasia (principal); K31.7 Polyp of stomach and duodenum; K44.9 Diaphragmatic hernia without obstruction or gangrene; Z98.890 Other specified postprocedural states; Z79.899 Other long term (current) drug therapy
CPT/HCPCS: 88305; 43239; J2001; J2704

== ENCOUNTER 2025-01-29 08:38 | Day surgery (SDC) | payer MEDICARE ==
[2025-01-25 15:21] VITALS: BMI 26.7
[~2025-01-29 08:38] MED LIST changes: -LACTATED RINGERS 1,000 ML IV SCH; +LIDOCAINE 1% (10MG/ML) FOR IV START INTRADERMA PRN; -LIDOCAINE 1% 20 ML VIAL (10MG/ML) FOR IV START INTRADERMA PRN
[2025-01-29 09:01] VITALS: TEMP 97
[2025-01-29] MEDS: LACTATED RINGERS 1,000 ML IV SCH (09:04)
[2025-01-29] MEDS: IV FLUID CONTINUATION 1,000 ML IV ONE (09:05)
[2025-01-29] MEDS ORDERED: PROPOFOL 10 MG/ML 20 ML VIAL IV ONE (10:03)
[2025-01-29] MEDS ORDERED: LIDOCAINE 2% (PF) 20 MG/ML 5 ML VIAL ONE (10:03)
--- NOTE | 2025-01-29 10:22 | P.PCN ---
Date of Procedure: 01/29/25 Procedure(s) Performed: BRIEF HISTORY: Patient is a 73-year-old, pleasant, white male scheduled upper endoscopy as a part of surveillance of Major's esophagus.. He was diagnosed with Major's esophagus with high-grade dysplasia in January 2019 for which he underwent endoscopic mucosal resection and radiofrequency ablation at [facility] in January 2019. Subsequently had surveillance upper endoscopy on a yearly basis the last 1 was done in December 2023. PROCEDURE PERFORMED: Esophagogastroduodenoscopy with biopsy. PREOPERATIVE DIAGNOSIS: History of Major's esophagus with high-grade dysplasia status post EMR and radiofrequency ablation in January 2019 IV sedation per anesthesia. PROCEDURE: After informed consent was obtained, the patient was brought into the endoscopy unit. IV sedation was administered by Anesthesia under continuous monitoring. Initially the Olympus GIF-140 video endoscope was inserted into the mouth. Esophagus intubated without any difficulty. It was gradually advanced into the stomach and duodenum and carefully examined. The bulb and the second part of the duodenum appeared normal. The scope at this time was withdrawn to the stomach, adequately insufflated with air, and upon careful examination, mucosa of the antrum, body, cardia and the fundus appeared normal. There is small gastric polyps noted. The scope was then withdrawn into the esophagus. Moderate size hiatal hernia noted the GE junction was located at 31 cm from the incisors. There were 2 islands of Major's appearing mucosa measuring 2 mm and 3 mm just proximal to the GE junction which were biopsied. The rest of the esophagus appeared normal. There were no erosions or ulcerations seen and the patient tolerated the procedure well. IMPRESSION: 1. Small islands of Major's appearing mucosa just proximal to the GE junction status post biopsy. 2. Moderate size hiatal hernia 3. Small gastric polyps RECOMMENDATIONS: The findings of this examination were discussed with the patient as well as his family. He was advised to follow-up with the biopsy results. Recommended repeat upper endoscopy in 1 year..
[2025-01-29 10:39] VITALS: BP 117/75; PULSE 60; RESP 14
== END 2025-01-29 11:17 | disposition home or self-care (01) ==
LOC: ORWHC2ENDO 08:38
PROVIDERS: ATTEND Internal Medicine Gastroenterology
DX: K22.70 Barrett's esophagus without dysplasia (principal); K31.7 Polyp of stomach and duodenum; K21.00 Gastro-esophageal reflux disease with esophagitis, without bleeding; K44.9 Diaphragmatic hernia without obstruction or gangrene; Z79.899 Other long term (current) drug therapy; Z85.01 Personal history of malignant neoplasm of esophagus; Z87.19 Personal history of other diseases of the digestive system
CPT/HCPCS: 43239; J2704; J2003; 88305

== ENCOUNTER → 2025-02-22 | Outpatient (CLI) | payer MEDICARE ==
--- NOTE | 2025-02-23 09:19 | PE ---
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 Images are reviewed on the computer in the coronal, axial, and sagittal planes. Reconstructed rotating images are created on independent workstation and reviewed on the computer. A non-contrast CT is performed in conjunction with the PET scan. CT DLP: 538 mGycm, Automated exposure control for dose reduction was used. COMPARISON: CT 04/16/2021, PET/CT 09/19/2019, MRI: None FINDINGS: Mediastinal SUV mean is 0.8. Hepatic parenchyma SUV mean is 8.7. SKULL BASE AND NECK: No suspicious radiotracer activity. CHEST, MEDIASTINUM, AND HILAR REGION: No suspicious radiotracer activity. ABDOMEN AND PELVIS: No suspicious radiotracer activity. MUSCULOSKELETAL STRUCTURES: No suspicious radiotracer activity. OTHER CT: The stenosis of the carotid bifurcations, arterial vasculature and coronary arteries. Moder ate hiatal hernia. Scattered colonic diverticula. The appendix is normal. High-density appendicolith noted in the midportion of an elongated appendix. Prostatomegaly. Bilateral fat-containing ventral he rnias. The physiologic uptake noted in the spleen, kidneys, adrenal glands, liver, stomach, small intestine, prostate gland, pancreas head, pancreas body, thyroid gland. IMPRESSION: No suspicious radiotracer activity. 02/23/2025 9:09 AM,02/22/2025 5:02 PM,Holland Colin,PET CT fusion skull to thigh,[id number] [facility], , 02/23/2025 9:17 AM
== END | disposition home or self-care (01) ==
LOC: RADPETMAIN 15:14
PROVIDERS: ATTEND Internal Medicine Gastroenterology
DX: C7B.02 Secondary carcinoid tumors of liver (principal); K44.9 Diaphragmatic hernia without obstruction or gangrene; K57.30 Diverticulosis of large intestine without perforation or abscess without bleeding; K43.9 Ventral hernia without obstruction or gangrene
CPT/HCPCS: 78815; A9587

== ENCOUNTER → 2025-02-25 | Outpatient (CLI) | payer MEDICARE ==
--- NOTE | 2025-02-25 11:17 | MR ---
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 Diffusion weighted i maging was performed. Thin and thick slice MRCP imaging performed on the MRI scanner. FINDINGS: Slightly suboptimal as patient has difficulty holding breath. Liver/gallbladder/pancreas/biliary system: Liver is normal in size. No concerning intrahepatic mass i dentified. Gallbladder shows no internal gallstones. Pancreas is normal in size without solid or cyst ic mass. MRCP imaging shows no pancreatic ductal dilatation. There is no suspicious intrahepatic or e xtrahepatic biliary dilatation. No CBD stones are present. Other: Moderate-sized hiatal hernia is redemonstrated. Both adrenal glands and kidneys are grossly un remarkable. No abnormal small or large bowel dilatation. No AAA. Levoconvex scoliosis is present. IMPRESSION: No suspicious mass or biliary dilatation. Some limitation due to lack of IV contrast. [facility], , 02/25/2025 11:15 AM
== END | disposition home or self-care (01) ==
LOC: RADMRIMAIN 09:38
PROVIDERS: ATTEND Internal Medicine Hematology & Oncology
DX: C7B.02 Secondary carcinoid tumors of liver (principal)
CPT/HCPCS: 74181